=== PATIENT | male | born 1985 | race Caucasian/White ===

== ENCOUNTER 2016-12-09 13:58 | Emergency (ER) | payer MEDICAID, OTHER ==
[~2016-12-09] VITALS: Ht 170.2 cm; Wt 89.0 kg
[2016-12-09 14:25] VITALS: Ht 170.2 cm; Wt 89.0 kg
--- NOTE | 2016-12-09 17:34 | ERD ---
ER Documentation Chief Complaint Date/Time DATE: 12/09/16 TIME: 17:33 Chief Complaint CP AND BACK PAIN X 1 MONTH HPI 31-year-old male who is otherwise healthy complains of intermittent midsternal chest pain, as well as low back pain for the past month and a half. Patient describes as achy, worse with movement, and not improving with Tylenol and ibuprofen. He was seen by his primary care doctor about 3 weeks ago and was told to take vcye-bzh-xclgunp medications. Patient's chest pain is also in the center, nonradiating, nonexertional. He has not tried anything for this. He has not had any fevers or chills or unintended weight loss. Family history is negative for sudden , acute coronary syndrome, or stroke. ROS All systems reviewed and are negative except as per history of present illness. Medications Home Meds Active Scripts Tramadol HCl (Tramadol HCl) 50 Mg Tablet, 50 MG PO Q4 Y for PAIN, #20 TAB Prov:RADHA HODGES PA-C 12/09/16 PMhx/Soc Medical and Surgical Hx: pt denies Medical Hx, pt denies Surgical Hx Hx Alcohol Use: No Hx Substance Use: No Hx Tobacco Use: No Smoking Status: Never smoker Physical Exam Vitals Vital Signs Date Time Temp Pulse Resp B/P Pulse Ox O2 Delivery O2 Flow Rate FiO2 12/09/16 19:58 68 16 143/87 100 Room Air 12/09/16 14:25 97.9 68 18 132/69 100 Physical Exam General: Well-developed, well-nourished. The patient appears in no acute distress. HEENT: Head is normocephalic, atraumatic. No scleral icterus. Pupils are equal , round, and reactive. Oral mucous membranes are moist. No pharyngeal erythema. Neck: Supple. Nontender. Lungs: Clear to auscultation. Normal air movement. Heart: Regular rate and rhythm. S1 and S2 are normal. No murmurs, gallops, or rubs. Abdomen: Soft, nontender, nondistended. Bowel sounds are normoactive. Extremities: No clubbing or cyanosis. Normal pulses. Moving extremities x 4. No weakness. Neurologic: Alert and oriented 3. No focal deficits. Skin: Normal turgor. No rash or lesions. Result Diagram: 12/09/16173912/09/16 1740 Results 24 hrs Laboratory Tests Test 12/09/16 17:40 White Blood Count 8.510^3/ul Red Blood Count 4.4210^6/ul Hemoglobin 12.9g/dl Hematocrit 39.0% Mean Corpuscular Volume 88.2fl Mean Corpuscular Hemoglobin 29.2pg Mean Corpuscular Hemoglobin Concent 33.1g/dl Red Cell Distribution Width 12.5% Platelet Count 15842^3/UL Mean Platelet Volume 10.6fl Neutrophils % 55.0% Lymphocytes % 32.5% Monocytes % 10.1% Eosinophils % 1.5% Basophils % 0.4% Nucleated Red Blood Cells % 0.0/100WBC Neutrophils # 4.710^3/ul Lymphocytes # 2.810^3/ul Monocytes # 0.910^3/ul Eosinophils # 0.110^3/ul Basophils # 0.010^3/ul Nucleated Red Blood Cells # 0.010^3/ul Urine Color YELLOW Urine Clarity CLEAR Urine pH 6.0 Urine Specific [place] 1.027 Urine Ketones NEGATIVEmg/dL Urine Nitrite NEGATIVEmg/dL Urine Bilirubin NEGATIVEmg/dL Urine Urobilinogen NEGATIVEmg/dL Urine Leukocyte Esterase NEGATIVELeu/ul Urine Microscopic RBC 1/HPF Urine Microscopic WBC 0/HPF Urine Mucus MANY/HPF Urine Hemoglobin NEGATIVEmg/dL Urine Glucose NEGATIVEmg/dL Urine Total Protein NEGATIVEmg/dl Sodium Level 142mmol/L Potassium Level 4.2mmol/L Chloride Level 107mmol/L Carbon Dioxide Level 26mmol/L Anion Gap 13 Blood Urea Nitrogen 15mg/dl Creatinine 0.93mg/dl Glucose Level 94mg/dl Calcium Level 9.2mg/dl Total Bilirubin 0.0mg/dl Direct Bilirubin 0.00mg/dl Indirect Bilirubin 0.0mg/dl Aspartate Amino Transf (AST/SGOT) 25IU/L Alanine Aminotransferase (ALT/SGPT) 40IU/L Alkaline Phosphatase 83IU/L Total Protein 7.4g/dl Albumin 4.6g/dl Globulin 2.80g/dl Albumin/Globulin Ratio 1.64 Lipase 45U/L DIAGNOSTIC IMAGING REPORT Patient: MAISHA MAHONEY : 1985 Age: 31 Sex: M MR #: [id number] DOS: 12/09/16 3909 Ordering MD: RADHA HODGES PA-C Location: [facility] Room/Bed: PROCEDURE: XR Chest. CLINICAL INDICATION: Abdominal pain. Chest pain. TECHNIQUE: Single frontal view. COMPARISON: None. FINDINGS: The lungs are clear. The heart size is normal. There is no pleural effusion. There is no pneumothorax. IMPRESSION: 1. Normal chest radiograph. RPTAT: QQ .Drake Mera MD, Date Time Electronically viewed and signed by .Drake Mera MD, on 12/09/2016 18:02 .R/ CC: RADHA HODGES PA-C DIAGNOSTIC IMAGING REPORT Patient: MAISHA MAHONEY : 1985 Age: 31 Sex: M MR #: [id number] DOS: 12/09/16 1729 Ordering MD: RADHA HODGES PA-C Location: [facility] Room/Bed: PROCEDURE: CT Abdomen and Pelvis without contrast. CLINICAL INDICATION: Abdominal and pelvic pain. Flank pain. TECHNIQUE: CT scan of the abdomen and pelvis without contrast was performed. Coronal and sagittal reformatted images were obtained from the axial source images. Images were reviewed on a high-resolution PACS workstation. Total exam DLP is 913.55 mGy-cm. CTDIvol is 15.60 mGy. One or more of the following dose reduction techniques were used: Automated exposure control, adjustment of the mA and/or kV according to patient size, use of iterative reconstruction technique. COMPARISON: None. FINDINGS: The lung bases are normal. There is no pleural effusion. The liver is normal in size and attenuation. There is no focal hepatic lesion. The gallbladder and bile ducts are normal. The spleen is normal in size. There is no focal splenic lesion. Both adrenals are normal with no enlargement or mass. The pancreas is unremarkable with no mass or evidence of pancreatitis. There is no renal mass or hydronephrosis. There is no renal calculus or ureteral calculus. The abdominal aorta is not dilated. There is no retroperitoneal lymphadenopathy or mass. There is no pelvic lymphadenopathy or mass. The bladder and distal ureters are normal. The periappendiceal region is unremarkable with no evidence of appendicitis. The appendix is well seen and appears normal. The bowel and mesentery are normal. There is no free fluid or free gas. The osseous structures are unremarkable with no fracture or lytic lesion. IMPRESSION: 1. Normal appendix. 2. No urinary tract calculus or hydronephrosis. 3. Unremarkable CT scan of the abdomen and pelvis. RPTAT: QQ .Drake Mera MD, MD Date Time Electronically viewed and signed by .Drake Mera MD, MD on 12/09/2016 18:05 .R/ CC: RADHA HODGES PA-C Procedures/MDM 12-lead EKG(interpreted by supervising physician): Dr. Nelson Rate/Rhythm: Normal Sinus Rhythm, rate of 68 QRS, ST, T-waves: No changes consistent w/ acute ischemia, no intervals, no dysrhythmias, no ectopy Impression: No evidence of ischemia or arrhythmia Medical decision makin-year-old male comes in with chest pain, back pain, worse at nighttime. Patient's back pain was evaluated, there is no evidence or history concerning for dissection. He complains of chest pain that is in the center, worse in movement, and seems to be more pleuritic. He has had this pain on and off for several weeks and unlikely it is a dissection, acute coronary syndrome, pulmonary embolus. He reports back pain for the past 6 weeks , CT abdomen pelvis was unremarkable. All labs are normal. No evidence of kidney stones, masses. No signs of dissection, PE, epidural abscess, cauda equina. Departure Diagnosis: Primary Impression: Chest pain Additional Impression: Back pain Condition: Good RADHA HODGES PA-C Dec 09, 2016 17:34
[2016-12-09 17:50] LABS: ADD SCAN DIFF NO
[2016-12-09 17:52] LABS: BASOPHILS % 0.4 % (0.0-2.0); EOSINOPHILS # 0.1 10^3/ul (0.0-0.5); EOSINOPHILS % 1.5 % (0.0-7.0); HEMOGLOBIN 12.9 g/dl (14.0-18.0); LYMPHOCYTES # 2.8 10^3/ul (0.8-2.9); LYMPHOCYTES % 32.5 % (15.0-51.0); MEAN CORPUSCULAR HEMOGLOBIN 29.2 pg (29.0-33.0); MEAN CORPUSCULAR HGB CONC 33.1 g/dl (32.0-37.0); MEAN CORPUSCULAR VOLUME 88.2 fl (82.0-101.0); MEAN PLATELET VOLUME 10.6 fl (7.4-10.4); MONOCYTE # 0.9 10^3/ul (0.3-0.9); MONOCYTES % 10.1 % (0.0-11.0); NEUTROPHIL # 4.7 10^3/ul (1.6-7.5); PLATELET COUNT 236 10^3/UL (140-415); RED BLOOD COUNT 4.42 10^6/ul (4.70-6.10); RED CELL DISTRIBUTION WIDTH 12.5 % (11.5-14.5); WHITE BLOOD COUNT 8.5 10^3/ul (4.8-10.8)
--- NOTE | 2016-12-09 18:03 | RADRPT ---
PROCEDURE: XR Chest. CLINICAL INDICATION: Abdominal pain. Chest pain. TECHNIQUE: Single frontal view. COMPARISON: None. FINDINGS: The lungs are clear. The heart size is normal. There is no pleural effusion. There is no pneumothorax. IMPRESSION: 1. Normal chest radiograph. RPTAT: QQ .Drake Mera MD, MD Date Time Electronically viewed and signed by .Drake Mera MD, MD on 12/09/2016 18:02 .R/
--- NOTE | 2016-12-09 18:06 | RADRPT ---
PROCEDURE: CT Abdomen and Pelvis without contrast. CLINICAL INDICATION: Abdominal and pelvic pain. Flank pain. TECHNIQUE: CT scan of the abdomen and pelvis without contrast was performed. Coronal and sagittal reformatted images were obtained from the axial source images. Images were reviewed on a high-resolu [employer] PACS workstation. Total exam DLP is 913.55 mGy-cm. CTDIvol is 15.60 mGy. One or more of the f ollowing dose reduction techniques were used: Automated exposure control, adjustment of the mA and/o r kV according to patient size, use of iterative reconstruction technique. COMPARISON: None. FINDINGS: The lung bases are normal. There is no pleural effusion. The liver is normal in size and attenuation. There is no focal hepatic lesion. The gallbladder and bile ducts are normal. The spleen is normal in size. There is no focal splenic lesion. Both adrenals are normal with no enlargement or mass. The pancreas is unremarkable with no mass or evidence of pancreatitis. There is no renal mass or hydronephrosis. There is no renal calculus or ureteral calculus. The abdominal aorta is not dilated. There is no retroperitoneal lymphadenopathy or mass. There is no pelvic lymphadenopathy or mass. The bladder and distal ureters are normal. The periappendiceal region is unremarkable with no evidence of appendicitis. The appendix is well s een and appears normal. The bowel and mesentery are normal. There is no free fluid or free gas. The osseous structures are unremarkable with no fracture or lytic lesion. IMPRESSION: 1. Normal appendix. 2. No urinary tract calculus or hydronephrosis. 3. Unremarkable CT scan of the abdomen and pelvis. RPTAT: QQ .Drake Mera MD, Date Time Electronically viewed and signed by .Drake Mera MD, on 12/09/2016 18:05 .R/
[2016-12-09 18:17] LABS: ALBUMIN 4.6 g/dl (3.3-4.9); ALBUMIN/GLOBULIN RATIO 1.64; CALCIUM 9.2 mg/dl (8.4-10.2); CREATININE 0.93 mg/dl (0.61-1.24); POTASSIUM 4.2 mmol/L (3.5-5.1); TOTAL PROTEIN 7.4 g/dl (6.1-8.1)
[2016-12-09 18:59] LABS: UR MUCUS MANY /HPF (NONE SEEN); UR RBC 1 /HPF (0-5)
[2016-12-09 19:21] LABS: ADD UMIC NO; UR ASCORBIC ACID NEGATIVE (NEGATIVE); UR BILIRUBIN (Dip) NEGATIVE (NEGATIVE); UR BLOOD (Dip) NEGATIVE (NEGATIVE); UR CLARITY CLEAR (CLEAR); UR COLOR YELLOW (YELLOW); UR GLUCOSE (Dip) NEGATIVE (NEGATIVE); UR KETONES (Dip) NEGATIVE (NEGATIVE); UR LEUKOCYTE ESTERASE (Dip) NEGATIVE Leu/ul (NEGATIVE); UR NITRITE (Dip) NEGATIVE (NEGATIVE); UR SPECIFIC GRAVITY (Dip) 1.027 (1.003-1.030); UR TOTAL PROTEIN (Dip) NEGATIVE (NEGATIVE); UR UROBILINOGEN (Dip) NEGATIVE (NEGATIVE)
[2016-12-09] MEDS ORDERED: TRAM50TA2 PO (19:44)
[2016-12-09 19:58] VITALS: BP 143/87; PULSE 68; RESP 16
== END 2016-12-09 19:59 | disposition home or self-care (01) ==
LOC: FTE 13:58
DX: R07.2 Precordial pain (principal); M54.5 Low back pain
CPT/HCPCS: 36415; 71010; 74176; 80053; 81003; 83690; 85025; 93005; Z7502

== ENCOUNTER 2018-12-23 22:08 | Emergency (ER) | payer SELFPAY ==
[~2018-12-23] VITALS: Ht 167.6 cm; Wt 92.3 kg
[~2018-12-23 22:08] MED LIST: TRAM50TA2 PO
[2018-12-23 22:14] VITALS: Ht 167.6 cm; Wt 92.3 kg
[2018-12-24] MEDS ORDERED: DIPHTH/TET/ACEL PERTUSS (ADULT) 0.5 ML VIAL IM* ONE (01:00)
[2018-12-24] MEDS ORDERED: HYDROCODONE/APAP (5/325) TAB PO ONE (01:00)
[2018-12-24] MEDS ORDERED: CEPH-443 PO (01:51)
[2018-12-24 02:02] VITALS: BP 131/71; PULSE 69; RESP 17
--- NOTE | 2018-12-24 06:51 | ERD ---
ER Documentation Chief Complaint Chief Complaint R lambert lac from falling sheet metal former HPI This is a 33-year-old male who presents to the ED complaining of a laceration to his right lower leg sustained from a sheet metal former approximately 3 to 4 hours ago. Patient does have some pain to the laceration site, pain is sharp and 9/10 intensity. He denies any numbness of his lower extremity. He has full range of motion of his foot and ankle. Last tetanus is over 5 years ago. ROS All systems reviewed and are negative except as per history of present illness. Medications Home Meds Active Scripts Cephalexin* (Keflex*) 500 Mg Capsule, 500 MG PO QID for 5 Days, CAP Prov:JOSE JAMES PA-C 12/24/18 Tramadol HCl (Tramadol HCl) 50 Mg Tablet, 50 MG PO Q4 PRN for PAIN, #20 TAB Prov:RADHA HODGES PA-C 12/09/16 Allergies Allergies: Coded Allergies: No Known Allergy (Unverified , 12/23/18) PMhx/Soc Medical and Surgical Hx: pt denies Medical Hx, pt denies Surgical Hx Hx Alcohol Use: No Hx Substance Use: No Hx Tobacco Use: No Physical Exam Vitals Vital Signs Date Temp Pulse Resp B/P (MAP) Pulse Ox O2 O2 Flow FiO2 Time Delivery Rate 12/24/18 98.0 69 17 131/71 99 Room Air 02:02 (91) 12/23/18 98.0 82 18 154/89 96 22:14 (110) Physical Exam Const: No acute distress Head: Atraumatic Eyes: Normal Conjunctiva ENT: Normal External Ears, Nose and Mouth. Neck: Full range of motion. No meningismus. Skin: No petechiae or rashes Ext: + Approximately 4.5 cm superficial vertical laceration to the right medial lambert, mild pain with palpation. Flexion/extension of ankle and toes intact. sensation of foot intact. DP/PT pulses intact. Cap refill < 2 seconds. Neur: Awake and alert Psych: Normal Mood and Affect Results 24 hrs Current Medications Medications Dose Sig/Kendal Start Time Status Last (Trade) Ordered Route PRN Stop Time Admin Dose Reason Admin 1 tab ONCE ONCE 12/24/18 DC 12/24/18 Acetaminophen PO 01:00 12/24/18 01:20 / 01:01 Hydrocodone Bitart ([place] (5/325)) Diphtheria/ 0.5 ml ONCE ONCE 12/24/18 DC 12/24/18 Tetanus/Acell IM* 01:00 12/24/18 01:21 Pertussis 01:01 (Adacel) Procedures/MDM ED COURSE: Tetanus is updated and [place] was given for pain. Patient tolerated medications well, pain improved. PROCEDURES: Laceration Repair by me: Anesthesia: None Location: Right medial lambert Tendon/Joint/Nerves: No injury Foreign body: None detected after copious irrigation and exploration Technique: Steri-Strips Complexity: No subcutaneous sutures/mucosal repair/edge excision Post Closure Length: 4.5 cm 48 hour wound check. Scar minimization instructions given. MEDICAL DECISION MAKING: This is a 33-year-old male who presents with a what appears to be a graze wound to his right lower leg from a sheet metal former. His tetanus was updated. Wound is superficial, therefore no sutures were placed. Wound was extensively irrigated and Steri-Strips were applied. Given nature of the injury, will cover patient w/ prophylactic antibiotics. Patient's bleeding was easily controlled in the department. No evidence of compartment syndrome, neurologic injury, vascular injury, tendon laceration, or foreign body. Patient is appropriate for outpatient follow up. PCP follow-up and strict return precautions were discussed. PRESCRIPTIONS: Keflex SPECIALIST FOLLOW UP RECOMMENDED: None Patient has been advised to follow up with primary care in 1-2 days. Departure Diagnosis: Primary Impression: Laceration Condition: Stable Patient Instructions: Laceration, All Referrals: [facility] YOU HAVE RECEIVED A MEDICAL SCREENING EXAM AND THE RESULTS INDICATE THAT YOU DO NOT HAVE A CONDITION THAT REQUIRES URGENT TREATMENT IN THE EMERGENCY DEPARTMENT. FURTHER EVALUATION AND TREATMENT OF YOUR CONDITION CAN WAIT UNTIL YOU ARE SEEN IN YOUR DOCTORS OFFICE WITHIN THE NEXT 1-2 DAYS. IT IS YOUR RESPONSIBILITY TO MAKE AN APPOINTMENT FOR FOLOW-UP CARE. IF YOU HAVE A PRIMARY DOCTOR --you should call your primary doctor and schedule an appointment IF YOU DO NOT HAVE A PRIMARY DOCTOR YOU CAN CALL OUR PHYSICIAN REFERRAL HOTLINE AT IF YOU CAN NOT AFFORD TO SEE A PHYSICIAN YOU CAN CHOSE FROM THE FOLLOWING [facility] [address] [facility]. [facility] [address] [facility] [address] [facility]. [facility] [address] [facility]. [facility] [address] [facility]. [facility]. [address] [facility]. [facility] YOU HAVE RECEIVED A MEDICAL SCREENING EXAM AND THE RESULTS INDICATE THAT YOU DO NOT HAVE A CONDITION THAT REQUIRES URGENT TREATMENT IN THE EMERGENCY DEPARTMENT. FURTHER EVALUATION AND TREATMENT OF YOUR CONDITION CAN WAIT UNTIL YOU ARE SEEN IN YOUR DOCTORS OFFICE WITHIN THE NEXT 1-2 DAYS. IT IS YOUR RESPONSIBILITY TO MAKE AN APPOINTMENT FOR FOLOW-UP CARE. IF YOU HAVE A PRIMARY DOCTOR --you should call your primary doctor and schedule and appointment IF YOU DO NOT HAVE A PRIMARY DOCTOR YOU CAN CALL OUR PHYSICIAN REFERRAL HOTLINE AT . IF YOU CAN NOT AFFORD TO SEE A PHYSICIAN YOU CAN CHOSE FROM THE FOLLOWING [facility] INSTITUTIONS: [address] [place], [place] [id number] [place] [address] [address] [place] [address] Additional Instructions: Paciente aconseja volver a Departamento de urgencias inmediatamente para sntomas nuevos o que empeoran . Paciente aconseja posteriores con el PCP en 1-2 [place]. Si el paciente no tiene ninguna de atencin primaria pueden seguir con [facility] [address] [place] [address] o [facility] [address] [place] [id number] JOSE JAMES PA-C Dec 24, 2018 06:49
== END 2018-12-24 02:02 | disposition home or self-care (01) ==
LOC: FTE 22:08
DX: S81.811A Laceration without foreign body, right lower leg, initial encounter (principal); W20.8XXA Other cause of strike by thrown, projected or falling object, initial encounter; Y92.9 Unspecified place or not applicable; Z23 Encounter for immunization
CPT/HCPCS: 90471; 90715